=== PATIENT | male | born 1975 | race Caucasian/White ===

== ENCOUNTER 2019-12-13 19:35 | Emergency (ER) | payer MEDICAID ==
[~2019-12-13] VITALS: Ht 182.9 cm; Wt 90.7 kg
[2019-12-13 19:43] VITALS: Ht 182.9 cm; Wt 90.7 kg
[2019-12-14 00:36] VITALS: BP 114/65
== END 2019-12-14 00:36 | disposition home or self-care (01) ==
LOC: ED 19:35
DX: S41.112A Laceration without foreign body of left upper arm, initial encounter (principal); S71.112A Laceration without foreign body, left thigh, initial encounter; S01.311A Laceration without foreign body of right ear, initial encounter; W45.8XXA Other foreign body or object entering through skin, initial encounter; Y93.89 Activity, other specified; Y92.89 Other specified places as the place of occurrence of the external cause; Y99.8 Other external cause status
CPT/HCPCS: J2001; J2270; J2405; J3010